=== PATIENT | female | born 1955 | race Caucasian/White ===

== ENCOUNTER → 2020-09-13 | Outpatient (CLI) | payer OTHER | LOC: EXRD 13:24 | DX: L40.50 Arthropathic psoriasis, unspecified (principal); M54.9 Dorsalgia, unspecified; M19.042 Primary osteoarthritis, left hand; M19.041 Primary osteoarthritis, right hand; M19.072 Primary osteoarthritis, left ankle and foot; M46.1 Sacroiliitis, not elsewhere classified | CPT/HCPCS: 72202; 73130; 73630 ==